=== PATIENT | female | born 1995 | race Two or more races ===

== ENCOUNTER 2018-09-11 19:41 | Emergency (ER) | payer MEDICAID ==
[~2018-09-11] VITALS: Ht 149.9 cm; Wt 54.4 kg
[2018-09-11 19:55] VITALS: BP 140/98
[2018-09-11] MEDS ORDERED: ACETAMINOPHEN 325 MG TAB PO ONE ×2 (20:04→20:15)
[2018-09-11 21:12] LABS: Basophils # (auto) 0 uL; Basophils % (auto) 0.1 % (0.0-2.0); Eosinophils # (auto) 0.1 uL; Hematocrit 40.1 % (36.0-46.0); Hemoglobin 13.2 g/dL (12.2-16.2); Lymphocytes # (auto) 1.1 uL; Lymphocytes % (auto) 15.7 % (10.0-50.0); Mean Corpuscular Hgb Conc. 32.9 g/dL (32.0-36.0); Monocytes # (auto) 0.2 uL; Monocytes % (auto) 2.6 % (0.0-12.0); Neutrophils # (auto) 5.7 uL; Neutrophils % (auto) 80.6 % (37.0-80.0); Platelet Count (auto) 252 10^3/uL (140-450); Red Cell Distribution Width 12.3 % (11.8-14.3); White Blood Cell 7.1 10^3/uL (4.4-10.8)
[2018-09-11 21:26] LABS: Albumin 4.1 g/dL (3.4-5.0); Calcium 8.5 mg/dL (8.5-10.1); Potassium 3.2 mmol/L (3.5-5.1)
[2018-09-11 21:29] LABS: BUN/Creatinine Ratio 12.2; Bilirubin, Total 0.5 mg/dL (0.2-1.0); Total Protein 8.4 g/dL (6.4-8.2)
== END 2018-09-11 23:50 | disposition left against medical advice (07) ==
LOC: EDBD 19:41 → ER 20:00
DX: N64.4 Mastodynia (principal); Z53.21 Procedure and treatment not carried out due to patient leaving prior to being seen by health care provider
CPT/HCPCS: 36415; 80053; 85025; 87040